=== PATIENT | male | born 1980 | race Asian ===

== ENCOUNTER 2017-07-26 16:43 | Emergency (ER) | payer BC ==
[2017-07-26 17:11] VITALS: BP 120/71
--- NOTE | 2017-07-26 18:40 | UC ---
Alex Masterson Gabriel, scribed for Juan Manuel Hollis MD on 07/26/17 at 1756 . HPI Febrile Illness - HPI Summary HPI Summary: This patient is a 36 year old M presenting [place] [facility] [place] [facility] [place] his with a chief complaint of a cough since 07/22/17. The patient rates the pain 6/10 in severity. Patient reports fever of 102, upper chest tightness/burning, fatigue, sore throat, and SANTIAGO. Patient denies n/v/d. Patient and his returned from [facility] on 07/22 and have been experience the same symptoms. - History of Current Complaint Chief Complaint: UCGeneralIllness Time Seen by Provider: 07/26/17 17:37 Hx Obtained From: Patient Onset/Duration: Still Present Timing: Constant Temperature: 102 F Initial Severity: Moderate Current Severity: Mild Pain Intensity: 6 Pain Scale Used: 0-10 Numeric - cough, upper chest tightness/burning, fatigue, sore throat, and SANTIAGO - Allergy/Home Medications Allergies/Adverse Reactions: Allergies Allergy/AdvReac Type Severity Reaction Status Date / Time No Known Allergies Allergy Verified 07/26/17 17:02 Home Medications: Home Medications Acetaminophen TAB* [Tylenol TAB*] 325 mg PO Q4H PRN 07/26/17 [History Confirmed 07/26/17] Dextromethorphan HBr [Cough Relief] 15 mg PO ONCE PRN 07/26/17 [History Confirmed 07/26/17] PMH/Surg Hx/FS Hx/Imm Hx Previously Healthy: Yes Other History Of: Negative For: HIV, Hepatitis B, Hepatitis C, Anticoagulant Therapy - Surgical History Surgical History: None - Family History Known Family History: Negative: Cardiac Disease, Hypertension, Diabetes, Renal Disease, Respiratory Disease, Seizure Disorder, Blood Disorder - Social History Occupation: Employed Full-time Lives: With Family Alcohol Use: None Substance Use Type: None Smoking Status (MU): Never Smoked Tobacco - Immunization History Most Recent Influenza Vaccination: 2016 Review of Systems Constitutional: Fever, Fatigue ENT: Sore Throat Respiratory: Cough, Other - burning in his chest Neurological: Headache All Other Systems Reviewed And Are Negative: Yes Physical Exam Triage Information Reviewed: Yes Appearance: Well-Appearing, No Pain Distress Vital Signs: Initial Vital Signs Temp 97.3 F 07/26/17 17:05 Pulse 102 07/26/17 17:05 Resp 18 07/26/17 17:05 BP 120/71 07/26/17 17:05 Pulse Ox 99 07/26/17 17:05 Vital Signs Reviewed: Yes ENT: Positive: Pharyngeal erythema, Nasal congestion, TMs normal Neck: Positive: Nontender Respiratory: Positive: Lungs clear, Normal breath sounds, No respiratory distress Cardiovascular: Positive: RRR, No Murmur Abdomen Description: Positive: Nontender Musculoskeletal: Positive: Strength Intact, ROM Intact Neurological: Positive: Alert, Muscle Tone Normal Psychological: Positive: Age Appropriate Behavior Skin Exam: Normal Course/Dx - Course Course Of Treatment: 36 yr old with influenza a, tamiflu and dc home. - Diagnoses Clinic Provider Diagnoses: influenza A Discharge - Discharge Plan Condition: Good Disposition: HOME Prescriptions: Oseltamivir CAP* [Tamiflu CAP*] 75 mg PO BID #10 cap Patient Education Materials: Influenza (ED) Referrals: No Primary Care Phys,NOPCP [Primary Care Provider] - [facility] [place] [place] [facility] [Outside] The documentation as recorded by the Alex flood Gabriel accurately reflects the service I personally performed and the decisions made by Telma eid Walter, MD.
== END 2017-07-26 18:47 | disposition home or self-care (01) ==
LOC: UCEAST 16:43
DX: J11.1 Influenza due to unidentified influenza virus with other respiratory manifestations (principal)
CPT/HCPCS: 87502; 99202; G0463

== ENCOUNTER 2017-07-31 12:48 | Emergency (ER) | payer BC ==
[2017-07-31 13:16] VITALS: BP 147/72
--- NOTE | 2017-07-31 14:28 | UC ---
Respiratory Complaint HPI - HPI Summary HPI Summary: PT SEEN HERE 07/26/17 AND SWABBED POSITIVE FOR INFLUENZA A. HAS COMPLETED TAMIFLU AND REPORTS THAT HE FEELS OVERALL MUCH BETTER BUT THAT HIS COUGH IS PERSISTENT. HAD AN EPISODE OF NIGHT SWEATS LAST NIGHT. OF NOTE - PT TRAVELED BACK FROM [facility] 07/22/17 WHERE HE WAS VISITING FOR 27 DAYS. 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 - Onset/Duration: Gradual Onset, Lasting Days, Still Present Severity Initially: Moderate Severity Currently: Mild Pain Intensity: 0 Pain Scale Used: 0-10 Numeric Character: Cough: Nonproductive Aggravating Factors: Nothing Alleviating Factors: Nothing - Allergies/Home Medications Allergies/Adverse Reactions: Allergies Allergy/AdvReac Type Severity Reaction Status Date / Time No Known Allergies Allergy Verified 07/31/17 13:16 PMH/Surg Hx/FS Hx/Imm Hx Previously Healthy: Yes Other History Of: Negative For: HIV, Hepatitis B, Hepatitis C, Anticoagulant Therapy - Surgical History Surgical History: None - Family History Known Family History: Negative: Cardiac Disease, Hypertension, Diabetes, Renal Disease, Respiratory Disease, Seizure Disorder, Blood Disorder - Social History Alcohol Use: None Substance Use Type: None Smoking Status (MU): Never Smoked Tobacco - Immunization History Most Recent Influenza Vaccination: 01/2017 Review of Systems Constitutional: Negative Respiratory: Cough Cardiovascular: Negative Gastrointestinal: Negative All Other Systems Reviewed And Are Negative: Yes Physical Exam Triage Information Reviewed: Yes Appearance: Well-Appearing, No Pain Distress, Well-Nourished Vital Signs: Initial Vital Signs Temp 98.5 F 07/31/17 13:13 Pulse 95 07/31/17 13:13 Resp 16 07/31/17 13:13 BP 147/72 07/31/17 13:13 Pulse Ox 99 07/31/17 13:13 Vital Signs Reviewed: Yes Eyes: Positive: Conjunctiva Clear ENT: Positive: Hearing grossly normal, Pharynx normal, TMs normal Neck: Positive: Supple, Nontender, No Lymphadenopathy Respiratory Exam: Normal Cardiovascular: Positive: Tachycardia Abdomen Description: Positive: Soft Musculoskeletal: Positive: No Edema Neurological: Positive: Alert Psychological: Positive: Normal Response To Family, Age Appropriate Behavior Skin: Negative: rashes UC Diagnostic Evaluation - Laboratory O2 Sat by Pulse Oximetry: 99 Respiratory Course/Dx - Course Course Of Treatment: ADVISED PT THAT SX OF FLU MAY LINGER FOR SOME TIME BUT THAT LONG HE CONTINUES TO IMPROVE THERE IS NO NEED FOR ANY ACUTE INTERVENTION. WILL GIVE TESSALON FOR COUGH. PT TO SEEK FOLLOW-UP IF ANY RECURRENT OR WORSENING SX. H/O RECENT TRAVEL BACK FROM [place] 07/22/17. WAS THERE VISITING FOR 27 DAYS. - Differential Dx/Diagnosis Provider Diagnoses: INFLUENZA A - RESOLVING BUT WITH PERSISTENT COUGH Discharge - Discharge Plan Condition: Stable Disposition: HOME Prescriptions: Benzonatate CAP* [Tessalon CAP*] 1 - 2 cap PO TID PRN #30 cap PRN Reason: Cough Patient Education Materials: Influenza (ED) Referrals: No Primary Care Phys,NOPCP [Primary Care Provider] - Additional Instructions: YOUR PERSISTENT COUGH IS LIKELY DUE TO YOUR RECENT DIAGNOSIS WITH THE FLU AND IT SHOULD SLOWLY IMPROVE OVER THE NEXT SEVERAL WEEKS. GO TO ER WITHOUT FAIL IF YOU DEVELOP RECURRENT SPIKING FEVER, SHORTNESS OF BREATH, NAUSEA, SWEATS, DIZZINESS, CHEST PAIN OR ANY OTHER CONCERNING SYMPTOMS. CALL THE NUMBER BELOW FOR ASSISTANCE IN ESTABLISHING WITH A PCP An additional resource available to assist in finding the appropriate physician for your health care needs is the [facility] ([facility]). You may contact them by calling [phone].
== END 2017-07-31 14:36 | disposition home or self-care (01) ==
LOC: UCEAST 12:48
DX: J11.1 Influenza due to unidentified influenza virus with other respiratory manifestations (principal); R05 Cough
CPT/HCPCS: 99212; G0463

== ENCOUNTER 2017-12-24 09:08 | Emergency (ER) | payer BC ==
[2017-12-24 09:15] VITALS: BP 145/95
--- NOTE | 2017-12-24 09:36 | UC ---
Throat Pain/Nasal Sudhakar HPI - HPI Summary HPI Summary: 37 yo male with sore throat x 2-3 days has felt feverish and had chills myalgias no cough or sob - History of Current Complaint Chief Complaint: UCGeneralIllness Stated Complaint: SORE THROAT, FEVER Time Seen by Provider: 12/24/17 09:24 Hx Obtained From: Patient Onset/Duration: Gradual Onset, Lasting Days Severity: Moderate Pain Intensity: 6 Pain Scale Used: 0-10 Numeric Associated Signs & Symptoms: Positive: Fever - Allergies/Home Medications Allergies/Adverse Reactions: Allergies Allergy/AdvReac Type Severity Reaction Status Date / Time No Known Allergies Allergy Verified 12/24/17 09:16 PMH/Surg Hx/FS Hx/Imm Hx Previously Healthy: Yes Other History Of: Negative For: HIV, Hepatitis B, Hepatitis C, Anticoagulant Therapy - Surgical History Surgical History: None - Family History Known Family History: Negative: Cardiac Disease, Hypertension, Diabetes, Renal Disease, Respiratory Disease, Seizure Disorder, Blood Disorder - Social History Alcohol Use: None Substance Use Type: None Smoking Status (MU): Never Smoked Tobacco - Immunization History Most Recent Influenza Vaccination: 01/2017 Review of Systems Constitutional: Fever, Chills, Fatigue Skin: Negative Eyes: Negative ENT: Sore Throat Respiratory: Negative Cardiovascular: Negative Gastrointestinal: Negative Genitourinary: Negative Motor: Negative Neurovascular: Negative Musculoskeletal: Negative Neurological: Negative Psychological: Negative Is Patient Immunocompromised?: No All Other Systems Reviewed And Are Negative: Yes Physical Exam Triage Information Reviewed: Yes Appearance: Well-Appearing, No Pain Distress, Well-Nourished Vital Signs: Initial Vital Signs Temp 98 F 12/24/17 09:09 Pulse 100 12/24/17 09:09 Resp 18 12/24/17 09:09 BP 145/95 12/24/17 09:09 Pulse Ox 99 12/24/17 09:09 Eyes: Positive: Conjunctiva Clear ENT: Positive: Hearing grossly normal, Pharyngeal erythema, TMs normal, Tonsillar swelling, Tonsillar exudate, Uvula midline. Negative: Nasal congestion, Nasal drainage, Trismus, Muffled voice, Hoarse voice, Dental tenderness, Sinus tenderness Neck: Positive: Supple, Enlarged Nodes @ - L>R cervical adenopathy Respiratory: Positive: Lungs clear, Normal breath sounds, No respiratory distress, No accessory muscle use Cardiovascular: Positive: RRR, No Murmur Musculoskeletal: Positive: ROM Intact, No Edema Neurological: Positive: Alert Psychological Exam: Normal Skin Exam: Normal Diagnostics - Laboratory Diagnostic Studies Completed/Ordered: strep (-) Throat Pain/Nasal Course/Dx - Differential Dx/Diagnosis Provider Diagnoses: acute exudative tonsillitis. elevated BP without diagnosis of hypertension Discharge - Sign-Out/Discharge Documenting (check all that apply): Discharge/Admit/Transfer - Discharge Plan Condition: Stable Disposition: HOME Prescriptions: Cephalexin CAP* [Keflex CAP*] 500 mg PO BID #20 cap Patient Education Materials: Tonsillitis (ED) [place] [facility] [place]] (your blood pressure was slightly elevated here today. I suggest you find a doctor and get this followed up. If it remains consistently elevated you may need to start medications for it) Additional Instructions: rest fluids tylenol or advil for pain - Billing Disposition and Condition Condition: STABLE Disposition: Home
== END 2017-12-24 10:11 | disposition home or self-care (01) ==
LOC: UCEAST 09:08
DX: J03.90 Acute tonsillitis, unspecified (principal); R03.0 Elevated blood-pressure reading, without diagnosis of hypertension
CPT/HCPCS: 87651; 99212; G0463